=== PATIENT | male | born 1940 | race African-American/Black ===

== ENCOUNTER 2017-05-05 10:31 | Inpatient (IN) | payer OTHER ==
[~2017-05-05] VITALS: Ht 165.1 cm; Wt 60.8 kg
[2017-05-05 10:45] VITALS: Ht 165.1 cm; Wt 60.8 kg
[2017-05-05 12:23] LABS: BASOPHIL % 0.4 % (0-2); PLATELET COUNT 205 x10^3mcL (130-400); RED CELL DISTRIBUTION WIDTH 13.9 % (11.5-14.5)
[2017-05-05 12:24] LABS: CALCIUM 9.8 mg/dL (8.5-10.1); CARBON DIOXIDE 27.1 mmol/L (21-32); CHLORIDE SERUM 111 mmol/L (98-107); CREATININE SERUM 1.7 mg/dL (0.7-1.3); GLUCOSE SERUM 88 mg/dL (74-106); POTASSIUM SERUM 4.3 mmol/L (3.5-5.1); SODIUM SERUM 152 mmol/L (136-145)
[2017-05-05 12:37] LABS: ALBUMIN 4.5 g/dL (3.4-5.0); ALKALINE PHOSPHATASE 50 U/L (46-116); ALT/SGPT 28 U/L (16-63); AST/SGOT 24 U/L (15-37); BILIRUBIN TOTAL 1.83 mg/dL (0.20-1.00); LIPASE 130 IU/L (73-393); T4(THYROXINE) 11.3 ug/dL (4.7-13.3); TOTAL PROTEIN, SERUM 8.2 g/dL (6.4-8.2)
[2017-05-05 12:39] LABS: AMPHETAMINE QUAL UR NONE DETECTED (NEG <=1000)
[2017-05-05 12:41] LABS: AMYLASE 155 U/L (25-115); CHOLESTEROL 224 mg/dL (<200); HDL CHOLESTEROL 66 mg/dL (40-60)
[2017-05-05 12:46] LABS: microscopic required? YES; urine erythrocyte NEGATIVE (NEGATIVE)
[2017-05-05 12:57] VITALS: BP 151/79
[2017-05-05 12:59] LABS: MAGNESIUM 2.4 mg/dL (1.8-2.4); PHOSPHOROUS 4.1 mg/dL (2.5-4.9)
[2017-05-05 13:25] VITALS: BP 151/79
[2017-05-05 17:28] VITALS: BP 133/77
[2017-05-05 20:32] VITALS: BP 144/75
[2017-05-06 05:04] VITALS: BP 162/80
[2017-05-06 07:02] LABS: CALCIUM 9.3 mg/dL (8.5-10.1); CARBON DIOXIDE 25.1 mmol/L (21-32); CHLORIDE SERUM 118 mmol/L (98-107); CREATININE SERUM 1.2 mg/dL (0.7-1.3); GLUCOSE SERUM 75 mg/dL (74-106); MAGNESIUM 2.3 mg/dL (1.8-2.4); PHOSPHOROUS 3.7 mg/dL (2.5-4.9); POTASSIUM SERUM 4.7 mmol/L (3.5-5.1); SODIUM SERUM 156 mmol/L (136-145)
[2017-05-06 08:08] LABS: BASOPHIL % 0.4 % (0-2); PLATELET COUNT 180 x10^3mcL (130-400); RED CELL DISTRIBUTION WIDTH 14.5 % (11.5-14.5)
[2017-05-06 10:04] VITALS: BP 156/81
[2017-05-06 17:33] VITALS: BP 140/78
[2017-05-06 21:08] VITALS: BP 150/88
[2017-05-07 05:18] VITALS: BP 145/82
[2017-05-07 07:35] LABS: CALCIUM 8.7 mg/dL (8.5-10.1); CARBON DIOXIDE 30.2 mmol/L (21-32); CHLORIDE SERUM 112 mmol/L (98-107); CREATININE SERUM 1.1 mg/dL (0.7-1.3); GLUCOSE SERUM 99 mg/dL (74-106); MAGNESIUM 1.8 mg/dL (1.8-2.4); PHOSPHOROUS 2.4 mg/dL (2.5-4.9); POTASSIUM SERUM 4.1 mmol/L (3.5-5.1); SODIUM SERUM 148 mmol/L (136-145)
[2017-05-07 07:38] LABS: PLATELET COUNT 160 x10^3mcL (130-400); RED CELL DISTRIBUTION WIDTH 13.5 % (11.5-14.5)
[2017-05-07 07:43] LABS: BASOPHIL % 2.5 % (0-2)
== END 2017-05-07 08:23 | disposition left against medical advice (07) | DRG 374 ==
LOC: ED 10:31 → DU 11:24 → MU 11:24 → DU 12:40 → MU 05-06 06:28
PROVIDERS: Emergency Medicine; Internal Medicine; ADMIT Family Medicine
PROC: 0DB28ZX Excision of Middle Esophagus, Via Natural or Artificial Opening Endoscopic, Diagnostic (ICD-10-PCS; principal; 2017-05-06 12:30)
PROC: 0D728ZZ Dilation of Middle Esophagus, Via Natural or Artificial Opening Endoscopic (ICD-10-PCS; 2017-05-06 12:30)
DX: C15.3 Malignant neoplasm of upper third of esophagus (principal); N17.0 Acute kidney failure with tubular necrosis; E87.0 Hyperosmolality and hypernatremia; K22.2 Esophageal obstruction; K21.9 Gastro-esophageal reflux disease without esophagitis; E87.8 Other disorders of electrolyte and fluid balance, not elsewhere classified; R13.10 Dysphagia, unspecified; D64.9 Anemia, unspecified; E78.5 Hyperlipidemia, unspecified; I10 Essential (primary) hypertension; M19.90 Unspecified osteoarthritis, unspecified site; Z87.891 Personal history of nicotine dependence; Z79.810 Long term (current) use of selective estrogen receptor modulators (SERMs)
CPT/HCPCS: 43220; 43235; 83880; J1200; J1610; J2250; J2310; J3010; J3490; J7030